=== PATIENT | female | born 1985 | race Hispanic/Latino ===

== ENCOUNTER 2017-05-27 10:30 | Emergency (ER) | payer BC, SELFPAY ==
[2017-05-27] MEDS ORDERED: Ibuprofen 800 MG TAB ONE (10:45)
== END 2017-05-27 10:49 | disposition home or self-care (01) ==
LOC: SCSER 10:30
DX: S39.002A Unspecified injury of muscle, fascia and tendon of lower back, initial encounter (principal); S86.802A Unspecified injury of other muscle(s) and tendon(s) at lower leg level, left leg, initial encounter; S86.801A Unspecified injury of other muscle(s) and tendon(s) at lower leg level, right leg, initial encounter; F41.9 Anxiety disorder, unspecified; F17.210 Nicotine dependence, cigarettes, uncomplicated; I10 Essential (primary) hypertension; Z79.899 Other long term (current) drug therapy; V44.5XXA Car driver injured in collision with heavy transport vehicle or bus in traffic accident, initial encounter
CPT/HCPCS: 99283

== ENCOUNTER 2019-09-17 11:00 | Day surgery (SDC) | payer BC ==
[~2019-09-17 11:00] MED LIST: Dexamethasone 20 MG/5 ML VIAL ONE; Glycopyrrolate 0.2 MG/ML 5 ML SYRINGE ONE; Lidocaine 1% PF 5 ML VIAL ONE; Metoclopramide HCl 10 MG/2 ML VIAL ONE; PHENYLEPHRINE-NS 100 MCG/ML 10 ML SYRINGE ONE; PROPOFOL 200 MG/20 ML VIAL ONE; Rocuronium Bromide 10 MG/ML (10ML VIAL) ONE; Succinylcholine Chloride 20 MG/ML 10 ml SYRINGE FS ONE
[2019-09-17] MEDS ORDERED: Midazolam HCl 2 mg/2 ml Vial ONE (12:34)
[2019-09-17] MEDS ORDERED: Fentanyl 100 MCG/2 ML VIAL ONE ×2 (12:34)
[2019-09-17 12:53] LABS: Hemoglobin 9.8 g/dL (12.0-16.0); Mean Corpuscular HGB CONC 32.8 g/dL (32.0-36.0); Mean Corpuscular Hemoglobin 32.6 pg (27.0-31.0); Mean Corpuscular Volume 99.2 fL (78.0-98.0); Mean Platelet Volume 8.5 fL (7.4-10.4); Platelet Count 191 thou/uL (130-400); RBC Distribution Width 11.7 % (11.5-14.5); Red Blood Cell (RBC) Count 3.02 mill/uL (4.20-5.40); White Blood Cell (WBC) Count 22.2 thou/uL (4.8-10.8)
[2019-09-17 13:09] LABS: Band 15 % (5-11); Lymphocytes 7 % (21-51); MDiff Complete? YES; Monocytes 2 % (0-10); Neutrophil 76 % (42-75); Platelet Morphology Comment Appears Adequate; Polychromasia SLIGHT = 2-3 cells (100X) (0-2/hpf)
[2019-09-17] MEDS ORDERED: Ondansetron PF 4 MG/2 ML Vial ONE (14:04)
[2019-09-17] MEDS ORDERED: Albumin 5% 250 ML ONE (14:38)
[2019-09-17] MEDS ORDERED: PROPOFOL 20 ML ONE (15:21)
[2019-09-17 16:07] LABS: Hemoglobin 7.4 g/dL (12.0-16.0)
== END 2019-09-17 17:30 | disposition home or self-care (01) ==
LOC: EDBD 11:00 → ERS 11:00 → SDC 13:18
PROVIDERS: ATTEND Obstetrics & Gynecology
PROC: 2Y44X5Z Packing of Female Genital Tract using Packing Material (ICD-10-PCS; principal; 2019-09-17)
DX: S31.41XA Laceration without foreign body of vagina and vulva, initial encounter (principal); F41.9 Anxiety disorder, unspecified; F32.9 Major depressive disorder, single episode, unspecified; F17.210 Nicotine dependence, cigarettes, uncomplicated; Z79.899 Other long term (current) drug therapy; Z88.0 Allergy status to penicillin
CPT/HCPCS: 36415; 51701; G0390; J1100; J2250; J2405; J2704; J2765; J3010; J7620; P9045

== ENCOUNTER 2025-01-11 10:19 | Emergency (ER) | payer BC, SELFPAY ==
[2025-01-11] MEDS ORDERED: Aspirin Chewable 81 MG TAB ONE (10:34)
[2025-01-11] MEDS ORDERED: hydrALAZINE 20 MG/ML VIAL ONE (10:40)
[2025-01-11 10:41] LABS: #Basophils 0.08 10x3/uL (0.0-0.2); #Eosinophils 0.18 10x3/uL (0.0-0.7); #Monocytes 0.80 10x3/uL (0.11-0.59); #Neutrophils 4.48 10x3/uL (1.40-6.50); %Basophils 0.9 % (0.0-1.0); %Eosinophils 2.0 % (0.0-10.0); %Lymphocytes 37.8 % (21.0-51.0); %Monocytes 8.9 % (0.0-10.0); %Neutrophils 50.1 % (42.0-75.0); Hematocrit 41.2 % (36.0-47.0); Hemoglobin 14.3 g/dL (12.0-16.0); Mean Corpuscular Hemoglobin 31.4 pg (27.0-31.0); Mean Corpuscular Volume 90.4 fL (78.0-98.0); Platelet Count 245 10x3/uL (130-400); Red Blood Cell (RBC) Count 4.56 mill/uL (4.20-5.40); White Blood Cell (WBC) Count 8.96 10x3/uL (4.8-10.8)
[2025-01-11 11:07] LABS: ALT (SGPT) 13 U/L (Less than 34); AST (SGOT) 27 U/L (11-34); Albumin 4.1 g/dL (3.1-4.5); Alkaline Phosphatase 71 U/L (40-110); Anion Gap 12 mmol/L (10-20); BUN (Urea Nitrogen) 16 mg/dL (7.0-18.7); Bilirubin, Total 0.3 mg/dL (0.3-1.2); Calc. Creatinine Clearance 0 mL/min (70-130); Calcium 8.7 mg/dL (7.8-10.44); Carbon Dioxide 24 mmol/L (22-29); Chloride 108 mmol/L (98-107); Globulin 2.9 g/dL (2.4-3.5); Glucose 90 mg/dL (70-105); Potassium 3.8 mmol/L (3.5-5.1); Sodium 140 mmol/L (136-145)
== END 2025-01-11 15:42 | disposition home or self-care (01) ==
LOC: ERS 10:19
DX: R07.89 Other chest pain (principal); I10 Essential (primary) hypertension; Z87.891 Personal history of nicotine dependence
CPT/HCPCS: 36415; 71045; 80053; 83880; 84484; 85025; 85379; 96374; J0360; Q0162